=== PATIENT | male | born 1940 | race Asian ===

== ENCOUNTER 2023-09-15 20:26 | Inpatient (IN) ==
[2023-09-15 21:44] LABS: ABS Basophils 0.1 10^3/uL (0.0-0.1); ABS Eosinophils 0.1 10^3/uL (0.0-0.5); ABS Lymphocytes 1.7 10^3/uL (1.0-4.8); ABS Monocytes 1.1 10^3/uL (0.0-1.1); Eosinophil % 0.8 %; Hematocrit 31.4 % (38-53); Hemoglobin 10.8 g/dL (13.2-16.3); Lymphocyte % 16.9 %; Mean Corpuscular Hemoglobin 28.2 pg (27-33); Mean Corpuscular Hgb Conc 34.6 g/dL (31-36); Mean Corpuscular Volume 81.7 fL (80-97); Mean Platelet Volume 6.1 fL (7.5-11.2); Platelet Count 477 10^3/uL (150-450); Red Blood Count 3.84 10^6/uL (4.06-5.63); Red Cell Distribution Width 13.9 % (12-17); White Blood Count 9.9 10^3/uL (3.6-10.2)
[2023-09-15 21:46] LABS: Urine Appearance Clear; Urine Bilirubin Negative (Negative); Urine Blood 1+ (Negative); Urine Color Yellow; Urine Glucose Negative (Negative); Urine Ketones 1+ (Negative); Urine Nitrite Negative (Negative); Urine Protein Trace (Negative); Urine Specific Gravity 1.014 (1.002-1.030); Urine Urobilinogen 1+ (Negative); Urine pH 6.5 (5.0-8.0)
[2023-09-15 21:54] LABS: Urine Bacteria Absent /HPF (Absent); Urine Red Blood Cell 2+(6-10/hpf) /HPF (0-Trace); Urine White Blood Cell Trace(0-5/hpf) /HPF (0-Trace)
[2023-09-15 22:16] LABS: Albumin 3.1 g/dL (3.2-5.2); C Reactive Protein 134.66 mg/L (<8.01); Calcium 7.9 mg/dL (8.6-10.3); Creatinine, Serum 0.65 mg/dL (0.67-1.17); Potassium 3.8 mmol/L (3.5-5.0); Total Bilirubin 0.9 mg/dL (0.2-1.0); Total Protein 6.1 g/dL (6.4-8.9); eGFR CKD-EPI 94.1 (>60)
[2023-09-15] MEDS: NS 0.9% 1000 ml BAG 1,000 ML IV ONE (23:55)
[2023-09-15] MEDS ORDERED: Ondansetron 4 mg VIAL 2 MG/ML 2 ml VIAL IV PRN (23:59)
[2023-09-16 00:29] LABS: Osmolality Serum 261 mOsm/kg (275-295)
[2023-09-16 01:05] LABS: Urine Osmo 370 mOsm/kg (150-1150)
[2023-09-16 05:17] LABS: ABS Basophils 0.1 10^3/uL (0.0-0.1); ABS Monocytes 0.8 10^3/uL (0.0-1.1); ABS Neutrophils 7.1 10^3/uL (1.5-7.6); ABS Nucleated RBC 0.01 10^3/ul; Eosinophil % 0.4 %; Hemoglobin 10.3 g/dL (13.2-16.3); Lymphocyte % 11.6 %; Mean Corpuscular Hemoglobin 27.9 pg (27-33); Mean Corpuscular Hgb Conc 34.3 g/dL (31-36); Mean Corpuscular Volume 81.4 fL (80-97); Nucleated Red Blood Cells % 0.1 %/100WBC (0.0-0.8); Platelet Count 440 10^3/uL (150-450); Red Blood Count 3.69 10^6/uL (4.06-5.63); Red Cell Distribution Width 13.8 % (12-17)
[2023-09-16 05:25] LABS: INR 1.41 (0.83-1.13)
[2023-09-16] MEDS: Enoxaparin 40 MG/0.4 ML SYR SUBCUT SCH (05:32)
[2023-09-16 06:00] LABS: Albumin 2.8 g/dL (3.2-5.2); Calcium 7.4 mg/dL (8.6-10.3); Creatinine, Serum 0.51 mg/dL (0.67-1.17); Globulin 2.9 g/dL (2-4); Magnesium 1.8 mg/dL (1.9-2.7); Potassium 3.5 mmol/L (3.5-5.0); Total Bilirubin 1.1 mg/dL (0.2-1.0); Total Protein 5.7 g/dL (6.4-8.9); eGFR CKD-EPI 101.2 (>60)
[2023-09-16] MEDS: Magnesium Sulfate 2 gm BAG 2 GM/50 ML BAG IVPB ONE (06:36)
[2023-09-16] MEDS: NS 0.9% 1000 ml BAG 1,000 ML IV SCH (07:34)
[2023-09-16 12:47] LABS: Calcium 7.4 mg/dL (8.6-10.3); Creatinine, Serum 0.45 mg/dL (0.67-1.17); Phosphorus 2.6 mg/dL (2.5-5.0); Potassium 3.5 mmol/L (3.5-5.0); eGFR CKD-EPI 105.1 (>60)
[2023-09-16] MEDS: Potassium Chloride LIQUID 20 MEQ/15 ML LIQUID PO ONE (13:08)
[2023-09-16] MEDS: Iohexol 350 (CONTRAST) 500 ML MDV IV ONE (14:58)
[2023-09-16 16:08] LABS: ABS Lymphocytes 0.5 10^3/uL (1.0-4.8); ABS Monocytes 0.3 10^3/uL (0.0-1.1); ABS Neutrophils 9.2 10^3/uL (1.5-7.6); Hemoglobin 11.4 g/dL (13.2-16.3); Mean Corpuscular Hemoglobin 28.1 pg (27-33); Mean Corpuscular Hgb Conc 34.5 g/dL (31-36); Mean Corpuscular Volume 81.3 fL (80-97); Mean Platelet Volume 5.9 fL (7.5-11.2); Platelet Count 515 10^3/uL (150-450); Red Blood Count 4.06 10^6/uL (4.06-5.63); Red Cell Distribution Width 13.6 % (12-17); White Blood Count 10.1 10^3/uL (3.6-10.2)
[2023-09-16 17:02] LABS: Sodium 124 mmol/L (135-145)
[2023-09-16 17:27] LABS: PCO2 Arterial 28 mmHg (35-45); PO2 Arterial 101 mmHg (80-100)
[2023-09-16 18:38] LABS: % Iron Saturation 10 % (15-55); .Transferrin 143 mg/dL (203-362); Iron < 20 ug/dL (50-212); Total Iron Binding Capacity 200 mcg/dL (250-450); Unsaturated Iron Binding 180 ug/dL
[2023-09-16 19:00] LABS: Ferritin 748.5 ng/mL (24-336)
[2023-09-16 19:04] LABS: Vitamin B12 490 pg/mL (180-914)
[2023-09-16 19:07] LABS: Vitamin D Total 25(OH) 27.5 ng/mL (20-50)
[2023-09-16 20:28] LABS: Erythrocyte Sed Rate 119 mm/Hr (0-19)
[2023-09-17] MEDS: Lidocaine 2% JELLY 6 ML Topical TOPICAL ONE (04:40)
[2023-09-17 06:08] LABS: Urine Appearance Turbid; Urine Color Red
[2023-09-17 06:34] LABS: ABS Eosinophils 0.1 10^3/uL (0.0-0.5); ABS Lymphocytes 1.1 10^3/uL (1.0-4.8); ABS Monocytes 0.7 10^3/uL (0.0-1.1); ABS Neutrophils 6.9 10^3/uL (1.5-7.6); Hematocrit 28.7 % (38-53); Hemoglobin 9.9 g/dL (13.2-16.3); Lymphocyte % 12.9 %; Mean Corpuscular Hemoglobin 28.1 pg (27-33); Mean Corpuscular Hgb Conc 34.6 g/dL (31-36); Mean Corpuscular Volume 81.3 fL (80-97); Mean Platelet Volume 6.3 fL (7.5-11.2); Platelet Count 435 10^3/uL (150-450); Red Blood Count 3.53 10^6/uL (4.06-5.63); Red Cell Distribution Width 13.7 % (12-17); White Blood Count 8.8 10^3/uL (3.6-10.2)
[2023-09-17 06:47] LABS: Urine Specific Gravity 1.019 (1.002-1.030)
[2023-09-17 06:52] LABS: Albumin 2.7 g/dL (3.2-5.2); Calcium 7.6 mg/dL (8.6-10.3); Creatinine, Serum 0.63 mg/dL (0.67-1.17); Globulin 2.7 g/dL (2-4); Potassium 3.4 mmol/L (3.5-5.0); Total Bilirubin 0.5 mg/dL (0.2-1.0); Total Protein 5.4 g/dL (6.4-8.9)
[2023-09-17 07:05] LABS: INR 1.29 (0.83-1.13)
[2023-09-17 08:02] LABS: Urine Bacteria Absent /HPF (Absent); Urine Red Blood Cell 3+(>10/hpf) /HPF (0-Trace); Urine White Blood Cell 1+(6-10/hpf) /HPF (0-Trace)
[2023-09-17] MEDS: Multivitamins/Minerals TAB PO SCH (09:08)
[2023-09-17] MEDS: Potassium Chloride LIQUID 20 MEQ/15 ML LIQUID PO ONE (09:08)
[2023-09-17 10:45] LABS: HDL Cholesterol 35.6 mg/dL
[2023-09-17 12:13] LABS: HIV 4th Generation Nonreactive (Nonreactive)
[2023-09-17 12:26] LABS: Hepatitis B Surface Antigen Nonreactive (Nonreactive)
[2023-09-17 12:31] LABS: Hepatitis A Ab IgM Negative (Negative)
[2023-09-17 12:32] LABS: Hepatitis B Core IgM Nonreactive (Nonreactive)
[2023-09-17 12:44] LABS: Hepatitis C Antibody Negative (Negative)
[2023-09-17] MEDS ORDERED: Polyethylene Glycol 3350 17 GM PACKET PO PRN (15:31)
[2023-09-17] MEDS ORDERED: Senna TAB 8.6 mg TAB PO PRN (15:31)
[2023-09-17] MEDS: Magnesium Hydroxide LIQ 30 ML UDC PO ONE (15:58)
[2023-09-17 19:04] LABS: Urine Potassium Concentration 21.7 mmol/L
[2023-09-17 19:39] LABS: Urine Osmo 292 mOsm/kg (150-1150)
[2023-09-18 05:15] LABS: ABS Eosinophils 0.1 10^3/uL (0.0-0.5); ABS Lymphocytes 1.4 10^3/uL (1.0-4.8); ABS Monocytes 0.6 10^3/uL (0.0-1.1); ABS Neutrophils 5.1 10^3/uL (1.5-7.6); ABS Nucleated RBC 0.01 10^3/ul; Hematocrit 29.7 % (38-53); Hemoglobin 9.8 g/dL (13.2-16.3); Lymphocyte % 19.6 %; Mean Corpuscular Hemoglobin 27.5 pg (27-33); Mean Corpuscular Hgb Conc 33.1 g/dL (31-36); Mean Corpuscular Volume 83.2 fL (80-97); Mean Platelet Volume 6.1 fL (7.5-11.2); Nucleated Red Blood Cells % 0.1 %/100WBC (0.0-0.8); Platelet Count 430 10^3/uL (150-450); Red Blood Count 3.57 10^6/uL (4.06-5.63); Red Cell Distribution Width 14.1 % (12-17); White Blood Count 7.2 10^3/uL (3.6-10.2)
[2023-09-18 05:41] LABS: Albumin 2.6 g/dL (3.2-5.2); Calcium 7.6 mg/dL (8.6-10.3); Creatinine, Serum 0.64 mg/dL (0.67-1.17); Globulin 2.5 g/dL (2-4); Phosphorus 3.3 mg/dL (2.5-5.0); Potassium 3.9 mmol/L (3.5-5.0); Total Bilirubin 0.3 mg/dL (0.2-1.0); Total Protein 5.1 g/dL (6.4-8.9); eGFR CKD-EPI 94.5 (>60)
[2023-09-18 18:39] LABS: ANA Pattern: Speckled
[2023-09-19 07:59] LABS: Hematocrit 30.2 % (38-53); Hemoglobin 10.4 g/dL (13.2-16.3); Mean Corpuscular Hemoglobin 28.1 pg (27-33); Mean Corpuscular Hgb Conc 34.6 g/dL (31-36); Mean Corpuscular Volume 81.3 fL (80-97); Mean Platelet Volume 5.9 fL (7.5-11.2); Platelet Count 453 10^3/uL (150-450); Red Blood Count 3.71 10^6/uL (4.06-5.63); Red Cell Distribution Width 13.7 % (12-17); White Blood Count 9.2 10^3/uL (3.6-10.2)
[2023-09-19 08:53] LABS: Albumin/Globulin Ratio 1.1 (1-3); Calcium 8.2 mg/dL (8.6-10.3); Creatinine, Serum 0.71 mg/dL (0.67-1.17); Globulin 2.8 g/dL (2-4); Magnesium 1.9 mg/dL (1.9-2.7); Phosphorus 3.7 mg/dL (2.5-5.0); Potassium 4.3 mmol/L (3.5-5.0); Total Bilirubin 0.5 mg/dL (0.2-1.0); Total Protein 5.8 g/dL (6.4-8.9); eGFR CKD-EPI 91.6 (>60)
[2023-09-20 06:10] LABS: Hematocrit 33.8 % (38-53); Hemoglobin 11.5 g/dL (13.2-16.3); Mean Corpuscular Hemoglobin 27.7 pg (27-33); Mean Corpuscular Hgb Conc 33.9 g/dL (31-36); Mean Corpuscular Volume 81.7 fL (80-97); Mean Platelet Volume 6.1 fL (7.5-11.2); Platelet Count 570 10^3/uL (150-450); Red Blood Count 4.14 10^6/uL (4.06-5.63); Red Cell Distribution Width 13.7 % (12-17); White Blood Count 13.9 10^3/uL (3.6-10.2)
[2023-09-20 06:13] LABS: INR 1.24 (0.83-1.13)
[2023-09-20 06:50] LABS: Albumin 3.3 g/dL (3.2-5.2); Albumin/Globulin Ratio 1.1 (1-3); Calcium 8.5 mg/dL (8.6-10.3); Creatinine, Serum 0.75 mg/dL (0.67-1.17); Globulin 3.1 g/dL (2-4); Magnesium 1.9 mg/dL (1.9-2.7); Potassium 4.1 mmol/L (3.5-5.0); Total Bilirubin 0.6 mg/dL (0.2-1.0); Total Protein 6.4 g/dL (6.4-8.9); eGFR CKD-EPI 90.1 (>60)
[2023-09-20 10:18] VITALS: BP 132/77
[2023-09-21 12:19] LABS: JO-1 Antibody <0.2 U; RNP Antibody, IgG 0.8 U; SS-A/Ro Antibody 0.2 U; SS-B/La Antibody <0.2 U; Scl 70 Ab, IgG, S <0.2 U; Sm (Smith) IgG Antibody <0.2 U
[2023-09-21 16:45] LABS: Complement C3 143 mg/dL (75 - 175)
== END 2023-09-20 12:45 | disposition home or self-care (01) | DRG 643 ==
LOC: ED 20:26 → EDHOLD 23:54 → SUATTDRO 23:54 → MEDTELE 09-16 15:12
PROVIDERS: ADMIT Internal Medicine; ATTEND Hospitalist

== ENCOUNTER 2023-11-01 08:09 | Inpatient (IN) ==
[2023-11-01 09:14] LABS: ABS Lymphocytes 0.9 10^3/uL (1.0-4.8); ABS Monocytes 0.5 10^3/uL (0.0-1.1); ABS Neutrophils 5.8 10^3/uL (1.5-7.6); Eosinophil % 0.2 %; Hematocrit 31.6 % (38-53); Hemoglobin 10.5 g/dL (13.2-16.3); Lymphocyte % 12.4 %; Mean Corpuscular Hemoglobin 26.9 pg (27-33); Mean Corpuscular Hgb Conc 33.3 g/dL (31-36); Mean Corpuscular Volume 80.8 fL (80-97); Platelet Count 323 10^3/uL (150-450); Red Blood Count 3.91 10^6/uL (4.06-5.63); Red Cell Distribution Width 15.6 % (12-17); White Blood Count 7.2 10^3/uL (3.6-10.2)
[2023-11-01 09:22] LABS: Activated Partial Thrombo Time 27.2 seconds (26.0-38.0); INR 1.31 (0.83-1.13)
[2023-11-01] MEDS: Lactated Ringers 1000 ml BAG 1,000 ML IV ONE ×2 (09:34→12:40)
[2023-11-01 10:10] LABS: Albumin 3.1 g/dL (3.2-5.2); Albumin/Globulin Ratio 0.9 (1-3); C Reactive Protein 49.83 mg/L (<8.01); Calcium 7.8 mg/dL (8.6-10.3); Creatinine, Serum 6.81 mg/dL (0.67-1.17); Globulin 3.3 g/dL (2-4); Potassium 3.9 mmol/L (3.5-5.0); Total Bilirubin 0.4 mg/dL (0.2-1.0); Total Protein 6.4 g/dL (6.4-8.9); eGFR CKD-EPI 7.5 (>60)
[2023-11-01 10:51] LABS: High Sensitivity Troponin 1 Hr 13 pg/mL (<20)
[2023-11-01 13:05] LABS: Urine Appearance Clear; Urine Bilirubin Negative (Negative); Urine Blood 1+ (Negative); Urine Color Light-Yellow; Urine Glucose Negative (Negative); Urine Ketones Negative (Negative); Urine Nitrite Negative (Negative); Urine Protein 1+ (>=30 mg/dL) (Negative); Urine Specific Gravity 1.012 (1.002-1.030); Urine Urobilinogen Negative (Negative); Urine pH 5.5 (5.0-8.0)
[2023-11-01 13:15] LABS: Urine Bacteria 1+ /HPF (Absent); Urine Red Blood Cell Trace(0-2/hpf) /HPF (0-Trace); Urine White Blood Cell Trace(0-5/hpf) /HPF (0-Trace)
[2023-11-01] MEDS: NS 0.45% 1000 ml BAG 1,000 ML IV SCH (15:20)
[2023-11-01] MEDS: cefTRIAXone 1 gm/50 mL D5W 1 GM/50 ML BAG IV ONE (15:33)
[2023-11-01 15:46] LABS: Calcium 7.4 mg/dL (8.6-10.3); Creatinine, Serum 4.82 mg/dL (0.67-1.17); Potassium 3.4 mmol/L (3.5-5.0); eGFR CKD-EPI 11.4 (>60)
[2023-11-01 15:47] LABS: Magnesium 1.9 mg/dL (1.9-2.7)
[2023-11-01] MEDS: KCL 20 MEQ/100 ML IVPREMIX 20 MEQ/100 ML BAG IV SCH (19:25)
[2023-11-01] MEDS: Heparin 5000 UNITS/ML 1 mL VIAL SUBCUT SCH (19:26)
[2023-11-02 02:01] LABS: Anion Gap 16 mmol/L (2-16); Blood Urea Nitrogen 97 mg/dL (6-24); CO2 Carbon Dioxide 21 mmol/L (22-32); Calcium 7.8 mg/dL (8.6-10.3); Chloride 105 mmol/L (101-111); Creatinine, Serum 4.04 mg/dL (0.67-1.17); Glucose 81 mg/dL (70-100); Sodium 142 mmol/L (135-145); eGFR CKD-EPI 14.1 (>60)
[2023-11-02 05:39] LABS: ABS Lymphocytes 1.2 10^3/uL (1.0-4.8); ABS Monocytes 0.6 10^3/uL (0.0-1.1); ABS Neutrophils 4.4 10^3/uL (1.5-7.6); ABS Nucleated RBC 0.01 10^3/ul; Eosinophil % 0.4 %; Hematocrit 32.2 % (38-53); Hemoglobin 10.6 g/dL (13.2-16.3); Lymphocyte % 19.4 %; Mean Corpuscular Hemoglobin 26.7 pg (27-33); Mean Platelet Volume 6.9 fL (7.5-11.2); Nucleated Red Blood Cells % 0.2 %/100WBC (0.0-0.8); Platelet Count 336 10^3/uL (150-450); Red Blood Count 3.98 10^6/uL (4.06-5.63); Red Cell Distribution Width 15.7 % (12-17); White Blood Count 6.3 10^3/uL (3.6-10.2)
[2023-11-02 06:23] LABS: Albumin 3.2 g/dL (3.2-5.2); Calcium 8.3 mg/dL (8.6-10.3); Creatinine, Serum 3.71 mg/dL (0.67-1.17); Globulin 3.3 g/dL (2-4); Magnesium 1.6 mg/dL (1.9-2.7); Phosphorus 4.2 mg/dL (2.5-5.0); Potassium 3.7 mmol/L (3.5-5.0); Total Bilirubin 0.4 mg/dL (0.2-1.0); Total Protein 6.5 g/dL (6.4-8.9); eGFR CKD-EPI 15.6 (>60)
[2023-11-02] MEDS: Magnesium Sulf 4 GM/100 ML IV 4,000 MG/100 ML BAG IVPB ONE (08:07)
[2023-11-02] MEDS: NS 0.45% 1000 ml BAG 1,000 ML IV SCH (11:41)
[2023-11-02 21:24] LABS: Creatinine, Serum 2.72 mg/dL (0.67-1.17); Potassium 3.3 mmol/L (3.5-5.0); eGFR CKD-EPI 22.6 (>60)
[2023-11-02] MEDS: Lactated Ringers 1000 ml BAG 1,000 ML IV ONE (22:49)
[2023-11-02] MEDS: Acetaminophen IV 1 GM/100ML 1,000 MG/100 ML BAG IV ONE (23:58)
[2023-11-03 08:39] LABS: ABS Eosinophils 0.1 10^3/uL (0.0-0.5); ABS Lymphocytes 1.5 10^3/uL (1.0-4.8); ABS Monocytes 0.4 10^3/uL (0.0-1.1); ABS Neutrophils 3.3 10^3/uL (1.5-7.6); Hematocrit 26.2 % (38-53); Hemoglobin 8.8 g/dL (13.2-16.3); Lymphocyte % 27.2 %; Mean Corpuscular Hemoglobin 26.9 pg (27-33); Mean Corpuscular Hgb Conc 33.7 g/dL (31-36); Mean Corpuscular Volume 79.7 fL (80-97); Mean Platelet Volume 6.9 fL (7.5-11.2); Nucleated Red Blood Cells % 0.1 %/100WBC (0.0-0.8); Platelet Count 280 10^3/uL (150-450); Red Blood Count 3.29 10^6/uL (4.06-5.63); Red Cell Distribution Width 15.6 % (12-17); White Blood Count 5.3 10^3/uL (3.6-10.2)
[2023-11-03 08:43] LABS: Calcium 7.4 mg/dL (8.6-10.3); Creatinine, Serum 2.22 mg/dL (0.67-1.17); eGFR CKD-EPI 28.9 (>60)
[2023-11-03 09:20] LABS: Magnesium 2.2 mg/dL (1.9-2.7)
[2023-11-03] MEDS: KCL 20 MEQ/100 ML IVPREMIX 20 MEQ/100 ML BAG IV SCH (10:00)
[2023-11-03] MEDS: Lactated Ringers 1000 ml BAG 1,000 ML IV SCH (10:07)
[2023-11-04] MEDS: Acetaminophen IV 1 GM/100ML 1,000 MG/100 ML BAG IV ONE (01:03)
[2023-11-04 07:00] LABS: ABS Eosinophils 0.1 10^3/uL (0.0-0.5); ABS Lymphocytes 1.6 10^3/uL (1.0-4.8); ABS Monocytes 0.6 10^3/uL (0.0-1.1); ABS Neutrophils 3.7 10^3/uL (1.5-7.6); Eosinophil % 1.1 %; Hematocrit 27.6 % (38-53); Hemoglobin 9.1 g/dL (13.2-16.3); Lymphocyte % 26.5 %; Mean Corpuscular Hemoglobin 26.7 pg (27-33); Mean Corpuscular Volume 80.9 fL (80-97); Mean Platelet Volume 6.9 fL (7.5-11.2); Platelet Count 286 10^3/uL (150-450); Red Blood Count 3.41 10^6/uL (4.06-5.63); Red Cell Distribution Width 15.1 % (12-17); White Blood Count 5.9 10^3/uL (3.6-10.2)
[2023-11-04 07:18] LABS: Calcium 7.5 mg/dL (8.6-10.3); Creatinine, Serum 1.64 mg/dL (0.67-1.17); Magnesium 1.5 mg/dL (1.9-2.7); Potassium 3.4 mmol/L (3.5-5.0); eGFR CKD-EPI 41.5 (>60)
[2023-11-04] MEDS: Magnesium Sulf 4 GM/100 ML IV 4,000 MG/100 ML BAG IVPB ONE (08:56)
[2023-11-04] MEDS: Potassium Chloride LIQUID 20 MEQ/15 ML LIQUID PO ONE (08:57)
[2023-11-04] MEDS: Potassium Phosphate IV 10 MMOL in NS 0.9% 250 ml 250 ML IVPB ONE (09:26)
[2023-11-04 10:13] VITALS: BP 120/65
[2023-11-04 11:46] LABS: Rapid COVID-19 Molecular Undetected (Undetected)
== END 2023-11-04 14:00 | DRG 684 ==
LOC: EDHOLD 08:09 → ED 08:09 → OBSVTOIN 12:57 → INTOOBSV 12:57 → SUATTDRO 12:57 → EDHOLD 11-02 03:07 → MED 11-02 08:06
PROVIDERS: ADMIT Internal Medicine; ATTEND Internal Medicine